=== PATIENT | female | born 1950 | race Caucasian/White ===

== ENCOUNTER → 2021-05-28 | Outpatient (REF) | payer MEDICARE, MEDICAID | LOC: M LAB REF 17:41 | PROVIDERS: ATTEND Dermatology | DX: D23.39 Other benign neoplasm of skin of other parts of face (principal); C44.321 Squamous cell carcinoma of skin of nose; Z15.09 Genetic susceptibility to other malignant neoplasm | CPT/HCPCS: 11441; 12051; 17311; 88305; G0463 ==